=== PATIENT | female | born 1960 | race Caucasian/White ===

== ENCOUNTER 2016-11-08 21:13 | Emergency (ER) | payer OTHER, MEDICARE ==
[2016-11-08] MEDS ORDERED: METHYLPRED SOD SUCC 125 MG/2 ML VIAL ONE (23:34)
[2016-11-08] MEDS ORDERED: KETOROLAC 60 MG/2 ML VIAL IM ONE (23:34)
== END 2016-11-08 23:55 | disposition home or self-care (01) ==
LOC: ER 21:13
DX: M47.892 Other spondylosis, cervical region (principal); M47.894 Other spondylosis, thoracic region; S16.1XXA Strain of muscle, fascia and tendon at neck level, initial encounter; V89.2XXA Person injured in unspecified motor-vehicle accident, traffic, initial encounter; M54.2 Cervicalgia; Z79.899 Other long term (current) drug therapy; F17.210 Nicotine dependence, cigarettes, uncomplicated
CPT/HCPCS: 72050; 72100; 96372